=== PATIENT | female | born 1985 | race Caucasian/White ===

== ENCOUNTER 2016-10-09 14:27 | Emergency (ER) | payer OTHER ==
[~2016-10-09] VITALS: Ht 177.8 cm; Wt 64.0 kg
[~2016-10-09 14:27] MED LIST: CITA20 PO; FERR324T4 PO; HYDR-2951 PO; KEPP500T3 PO; SERO25TA PO
[2016-10-09 14:39] VITALS: BP 124/83; PULSE 104; RESP 16; TEMP 97.7; O2SAT 98
[2016-10-09] MEDS ORDERED: SODIUM CHLORIDE 0.9% FLUSH 10 ML FLUSH IVF PRN (15:00)
[2016-10-09 15:25] VITALS: O2SAT 98
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
[2016-10-09 16:11] LABS: BICARBONATE 20.2 MEQ/L (21.0-32.0)
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
[2016-10-09 16:29] LABS: POTASSIUM 4.7 MEQ/L (3.5-5.1)
[2016-10-09] MEDS ORDERED: LEVE500 PO (16:41)
[2016-10-09] MEDS ORDERED: levETIRAcetam 500 MG TAB PO ONE (16:45)
[2016-10-09 16:56] VITALS: BP 118/71
== END 2016-10-09 16:58 | disposition home or self-care (01) ==
LOC: NEPE 14:27
DX: R56.9 Unspecified convulsions (principal); F41.9 Anxiety disorder, unspecified; Z72.0 Tobacco use
CPT/HCPCS: 70450; 72125; 80048; 84703; 99284